=== PATIENT | female | born 1980 | race Caucasian/White ===

== ENCOUNTER 2023-11-19 06:13 | Day surgery (SDC) | payer OTHER ==
[~2023-11-19] VITALS: Ht 152.4 cm; Wt 46.3 kg
[2023-11-19 07:29] LABS: BASOPHILS # (AUTO) 0.1 K/uL (0.00-0.22); BASOPHILS % (AUTO) 0.7 % (0.0-2.0); EOSINOPHILS # (AUTO) 0.5 K/uL (0-0.4); EOSINOPHILS % (AUTO) 5.6 % (0.0-4.0); HEMATOCRIT 36.6 % (36-48); HEMOGLOBIN 13.1 g/dL (12.0-16.0); LYMPHOCYTES # (AUTO) 2.8 K/uL (2.5-16.5); LYMPHOCYTES % (AUTO) 29.5 % (20.5-51.1); MEAN CORPUSCULAR HEMOGLOBIN 33 pg (27-31); MEAN CORPUSCULAR HGB CONC 36 g/dL (33-37); MEAN CORPUSCULAR VOLUME 91.8 fL (80-94); MONOCYTES # (AUTO) 0.7 K/uL (0.8-1.0); MONOCYTES % (AUTO) 7.5 % (1.7-9.3); NEUTROPHILS # (AUTO) 5.3 K/uL (1.8-7.7); NEUTROPHILS % (AUTO) 56.7 % (42.2-75.2); PLATELET COUNT (AUTO) 315 K/uL (140-450); RED BLOOD CELL COUNT(AUTO) 3.99 MIL/uL (4.20-5.40); WHITE BLOOD COUNT (AUTO) 9.4 K/uL (4.8-10.8)
[2023-11-19 07:42] LABS: ALBUMIN 2.2 g/dL (3.4-5.0); ANION GAP 9.3 (8-16); CALCIUM 8.5 mg/dL (8.5-10.1); CARBON DIOXIDE 31.8 mmol/L (21-32); CREATININE 1.3 mg/dL (0.6-1.3); POTASSIUM 5.1 mmol/L (3.5-5.1); TOTAL BILIRUBIN 0.2 mg/dL (0.0-1.0); TOTAL PROTEIN, SERUM 6.3 g/dL (6.4-8.2)
[2023-11-19] MEDS ORDERED: SEVOFLURANE 250 ML BTL INH ONE (09:00)
[2023-11-19] MEDS ORDERED: MIDAZOLAM 2 MG/2 ML VIAL ONE (09:35)
[2023-11-19] MEDS ORDERED: fentaNYL citrate 0.05 MG/ML VIAL ONE (09:35)
[2023-11-19] MEDS ORDERED: PROPOFOL 200 MG/20 ML VIAL IV ONE (09:36)
[2023-11-19] MEDS ORDERED: SUCCINYLCHOLINE CHLORIDE 200 MG/10 ML VIAL IVP ONE (09:36)
[2023-11-19] MEDS ORDERED: ROCURONIUM 50 MG/5 ML VIAL IV ONE (09:36)
[2023-11-19] MEDS ORDERED: ONDANSETRON 4 MG/2 ML VIAL ONE (09:36)
[2023-11-19] MEDS ORDERED: METOCLOPRAMIDE 10 MG/2 ML INJ VIAL ONE (09:37)
[2023-11-19] MEDS ORDERED: DEXAMETHASONE 4 MG/ML VIAL ONE (09:37)
[2023-11-19] MEDS ORDERED: SUGAMMADEX SODIUM 200 MG/2 ML VIAL IV ONE (09:37)
[2023-11-19] MEDS: BUPIVACAINE-MPF 0.25% 30 ML VIAL INJ ONE (10:05)
[2023-11-19] MEDS ORDERED: LACTATED RINGERS 1,000 ML IV SCH (10:40)
[2023-11-19] MEDS ORDERED: ONDANSETRON 4 MG/2 ML VIAL IVP PRN (10:40)
[2023-11-19] MEDS ORDERED: BLOOD GLUCOSE MONITORING 1 DEV DEV FS SCH (10:40)
[2023-11-19] MEDS ORDERED: MEPERIDINE 25 MG/ML SYR IVP PRN (10:40)
[2023-11-19] MEDS ORDERED: ACETAMINOPHEN 100 ML IV SCH (10:40)
[2023-11-19] MEDS ORDERED: diphenhydrAMINE 50 MG/ML VIAL IVP PRN (10:40)
[2023-11-19] MEDS: HYDROmorphone 1 MG/ML AMP IVP PRN (11:00)
[2023-11-19] MEDS ORDERED: HYDROmorphone PFS 2 MG/ML SYR ONE (11:01)
[2023-11-19] MEDS ORDERED: oxyCODONE/APAP 5/325 MG 1 TAB TAB PO PRN (11:25)
== END 2023-11-19 15:05 | disposition home or self-care (01) ==
LOC: MOR 06:13 → MMU 06:26 → MOR 15:05
PROVIDERS: ATTEND Obstetrics & Gynecology
DX: N92.0 Excessive and frequent menstruation with regular cycle (principal); N80.9 Endometriosis, unspecified; N84.0 Polyp of corpus uteri; E78.5 Hyperlipidemia, unspecified; E11.9 Type 2 diabetes mellitus without complications; Z98.891 History of uterine scar from previous surgery; Z79.899 Other long term (current) drug therapy; Z98.890 Other specified postprocedural states
CPT/HCPCS: 36415; 58558; 58662; 80053; 82948; 84703; 85025; 86886; 86900; 86901; 93005; J0330; J1100; J1170; J2250; J2405; J2704; J2765; J3010; J3490; J7030